=== PATIENT | female | born 1975 ===

== ENCOUNTER 2022-10-28 18:09 | Emergency (ER) | payer OTHER, MEDICAID, SELFPAY ==
[2022-10-28] VITALS (9 sets, daily range): BP systolic 112–169; BP diastolic 65–91; PULSE 84–94; RESP 16–18; TEMP 36.6; O2SAT 97–100; BMI 51.5
--- NOTE | 2022-10-28 18:29 | ED.ABDPAIN ---
HPI - Abdominal Pain General Chief Complaint: Abdominal Pain Stated Complaint: abd pain t-7/cramping/ref by [facility] Time Seen by Provider: 10/28/22 18:20 Source: patient Mode of arrival: Wheelchair History of Present Illness HPI narrative: 47-year-old female smoker without chronic medical problems presents for evaluation of at least 7 days of right upper quadrant pain. She states that it has been coming on rather gradually in his persistent. It is made worse by motion and eating. She states that she has a poor appetite and last solid food was a few bites of applesauce last night. Her last oral intake was 1 or 2 hours ago. She denies any fever or chills. She is generally weak but denies fever and chills. She has poor appetite. She denies any runny nose, sore throat or cough. She has no chest pain or shortness of breath. She denies any prior surgeries. She states that she is scheduled to have surgery at [facility] in the next few days to remove a IUD that has been in place for greater than 20 years. She states that she has known for least the past 6 years that it has been broken and penetrating her uterine wall. She denies vaginal bleeding or discharge. She has no lower abdominal pain Related Data Previous Rx's Medication Instructions Recorded furosemide 20 mg tablet (Lasix) 20 mg PO QDAY #15 tabs 12/08/16 potassium chloride 20 mEq 20 meq PO QDAY #15 tabs 12/08/16 tablet,extended release (K-Tab) amoxicillin 875 mg-potassium 1 tab PO Q12H #20 tabs 10/28/22 clavulanate 125 mg tablet hydrocodone 5 mg-acetaminophen 325 1 tab PO Q4-6H PRN pain #10 tabs 10/28/22 mg tablet ondansetron 4 mg disintegrating 4 mg PO TID-QID PRN nausea and 10/28/22 tablet vomiting #10 tabs Allergies Allergy/AdvReac Type Severity Reaction Status Date / Time prednisone [PREDNISONE] AdvReac Unknown TO HIGH Verified 10/28/22 18:12 DOSES=ITCHING, MOOD SWINGS, SHAKING Review of Systems Review of Systems Narrative: GENERAL: See HPI HEENT: Denies sinus pain, ear pain, sore throat, difficulty swallowing, dizziness. RESPIRATORY: Denies dyspnea, cough, wheezing, hemoptysis, sputum. CARDIOVASCULAR: Denies chest pain, palpitations, orthopnea, edema, GASTROINTESTINAL: See HPI : Denies dysuria, frequency, incontinence, hematuria, urinary retention. MUSCULOSKELETAL: denies weakness, joint pain, or bony pain SKIN: Denies rash, skin lesions, or other NEUROLOGIC: Denies weakness, headache, numbness, change in speech, confusion, seizures, incoordination. PSYCHIATRIC: No concerning psychosocial issues. 12 point review of systems is negative except for those stated above Patient History Social History Smoking Status: Current every day smoker Smoking Status: Current every day smoker alcohol intake frequency: holidays/special occasions only Substance Use Type: does not use Exam Narrative Exam Narrative: GENERAL: [47] year old patient appears stated age. Well-developed patient, in mild distress. BMI 51.6 HEAD: Atraumatic. Normocephalic. EYES: Pupils equal round and reactive. Extraocular motions intact. No scleral icterus. No injection or drainage. ENT: Nose without bleeding, purulent drainage. Throat without erythema, tonsillar hypertrophy or exudate. Airway patent. NECK: Trachea midline. Non tender CARDIOVASCULAR: Regular rate and rhythm without murmurs, gallops, or rubs. RESPIRATORY: Clear to auscultation. Breath sounds equal bilaterally. No wheezes, rales, or rhonchi. GASTROINTESTINAL: Abdomen soft, tender in the right upper quadrant, positive Carlin's, nondistended. EXTREMITIES: No edema or joint tenderness. BACK: Nontender without deformity or crepitance. No flank tenderness. NEURO: AOx3. SKIN: No rash or erythema of visible areas Initial Vital Signs Initial Vital Signs: Vital Signs Temperature 97.8 F 10/28/22 18:12 Pulse Rate 94 H 10/28/22 18:12 Respiratory Rate 16 10/28/22 18:12 Blood Pressure 112/65 10/28/22 18:12 Pulse Oximetry 100 10/28/22 18:12 Oxygen Delivery Method Room Air 10/28/22 18:12 Course Orders Ordered: ED Orders 10/28/22 18:25 Urine Microscopic Stat 10/28/22 18:42 US abdomen limited Stat 10/28/22 19:05 Complete Blood Count AUTO DIFF Stat Comprehensive Metabolic Panel Stat Lipase Stat 10/28/22 19:58 CT abdomen pelvis w con Stat Ondansetron HCl (Ondansetron 4 Mg/2 Ml Inj) 4 mg IV NOW PRN PRN Reason: Nausea And Vomiting Last Admin: 10/28/22 19:12 Dose: 4 mg Documented By: SANJEEV Discontinued Medications Hydrocodone Bitart/Acetaminophen (Hydrocodone/Acet 5/325 Prepack) 1 bottle MISC SEEINSTR ONE Stop: 10/28/22 20:51 Hydromorphone HCl (Hydromorphone 0.5 Mg Inj) 0.5 mg IV NOW ONE Stop: 10/28/22 18:44 Last Admin: 10/28/22 19:12 Dose: 0.5 mg Documented By: SANJEEV Sodium Chloride (Normal Saline 0.9%) 1,000 mls @ 1,000 mls/hr IV BOLUS ONE Stop: 10/28/22 19:42 Last Infusion: 10/28/22 20:24 Dose: 0 mls/hr Documented By: Admin: 10/28/22 19:12 Dose: 1,000 mls/hr Documented By: SANJEEV Ondansetron HCl (Ondansetron 4 Mg Odt Prepack) 1 bottle MISC SEEINSTR ONE Stop: 10/28/22 20:51 Vital Signs Vital signs: Vital Signs - 8 hr 10/28/22 18:12 10/28/22 19:22 10/28/22 19:23 Temperature 97.8 F Pulse Rate 94 H 88 84 Respiratory Rate 16 Blood Pressure 112/65 Pulse Oximetry 100 97 97 Oxygen Delivery Method Room Air Room Air Room Air 10/28/22 19:23 10/28/22 19:30 10/28/22 19:30 Temperature Pulse Rate 85 Respiratory Rate Blood Pressure 136/85 169/91 H Pulse Oximetry 98 Oxygen Delivery Method Room Air 10/28/22 20:00 10/28/22 20:01 10/28/22 20:01 Temperature Pulse Rate 84 84 Respiratory Rate Blood Pressure 143/69 H Pulse Oximetry 97 97 Oxygen Delivery Method Room Air 10/28/22 20:30 10/28/22 20:30 10/28/22 20:53 Temperature Pulse Rate 85 Respiratory Rate 18 Blood Pressure 156/84 H Pulse Oximetry 98 Oxygen Delivery Method Room Air MDM - Abdominal Pain Lab Data 10/28/22 19:05 10/28/22 19:05 Labs: Lab Results 10/28/22 10/28/22 10/28/22 Range/Units 18:25 19:05 19:05 WBC 14.8 H (4.5-11.0) X10^3/uL RBC 5.16 (4.0-5.2) X10^6/uL Hgb 15.8 (12.0-16.0) g/dL Hct 46.5 H (36-46) % MCV 90.2 (80-100) fL MCH 30.6 (26-34) PG MCHC 34.0 (30-36) % RDW 13.4 (11.6-14.8) % Plt Count 240 (150-400) X10^3/uL Neut % (Auto) 82.3 H (50-75) % Lymph % (Auto) 8.8 L (25-40) % [place] % (Auto) 6.2 (3-14) % Eos % (Auto) 1.0 L (2-4) % Baso % (Auto) 1.7 (0-2) % Neut # (Auto) 58007 H (6063-5526) /uL Lymph # (Auto) 1300 (5181-8819) /uL [place] # (Auto) 900 (0-900) /uL Eos # (Auto) 200 (0-450) /uL Baso # (Auto) 200 H (0-100) /uL Sodium 133 L (137-145) mmol/L Potassium 3.7 (3.4-5.1) mmol/L Chloride 97 L (98-107) mmol/L Carbon Dioxide 27 (22-32) mmol/L BUN 7 (7-17) mg/dL Creatinine 0.60 (0.52-1.04) mg/dL Estimated GFR > 60 (>60) mL/min BUN/Creatinine Ratio 11.7 (6-22) Glucose 128 H (70-100) mg/dL Calcium 9.1 (8.4-10.2) mg/dL Total Bilirubin 0.7 (0.2-1.3) mg/dL AST 20 (14-36) IU/L ALT 33 (<35) IU/L Alkaline Phosphatase 82 (38-126) U/L Total Protein 7.9 (6.3-8.2) g/dL Albumin 4.2 (3.5-5.0) g/dL Globulin 3.7 (1.7-4.1) g/dL Albumin/Globulin Ratio 1.1 (1.0-2.8) Lipase 24 (23-300) U/L Urine RBC 10-30/hpf H (0-5/HPF) Urine WBC 1-5/hpf (0-5/HPF) Ur Squamous Epith Cells 1-5 /hpf (0-5/HPF) Urine Bacteria Occasional (0-1) (None) Ur Culture Indicated? Cult not indicated Point of care testing: Point of Care Testing Test Results Negative Urine Dip Bedside Urine Glucose Negative Bedside Urine Bilirubin - Negative Bedside Urine Ketone - Negative Urine Specific [place] 1.015 Bedside Urine Occult Blood + Bedside Urine pH 6.0 Bedside Urine Protein - Negative Bedside Urine Urobilinogen - Negative Bedside Urine Nitrite - Negative Bedside Urine Leukocytes - Negative Esterase MDM Narrative Medical decision making narrative: CC: 47-year-old female with right upper quadrant pain x7 days Complicating co-morbidities: BMI 51.6, smoker Data collected from: Patient Medical records reviewed: Prior notes reviewed in our EMR Differential considered, but not limited to: Gallbladder disease versus pancreatitis versus bowel obstruction versus other Exam documented above, pertinent findings include: Heart rate is regular lungs are clear, abdomen soft but tender in the right upper quadrant, no suprapubic or lower abdominal pain Lab Test results independently reviewed as above. Pertinent findings: Independently reviewed EKG as above Imaging studies independently reviewed: Right upper quadrant abdominal ultrasound without any significant findings. CT of abdomen and pelvis with IV contrast shows inflammation versus infectious process in the ileum without evidence of obstruction, abscess, perforation or other significant finding Treatments: Fluids, pain control Re-evaluations: Patient feeling significant improvement. Pains controlled, tolerating orals Discussion: Patient with right upper quadrant pain for 1 week, multiple diagnoses considered as noted above. Gallbladder and pancreatic involvement thought unlikely given lack of laboratory or imaging findings. No evidence of obstruction, perforation, abscess or surgical finding. Inflammation versus infection of ileum thought most likely source. Patient's pain is well controlled, she is tolerating orals, labs and imaging are reassuring, return precautions discussed which include worsening pain, vomiting, fever, shaking chills. Disposition: see below, along with detailed discharge instructions that have been reviewed with patient as well as indications for ED re-evaluation and additional outpatient follow up Discharge Plan Departure Patient Disposition: Home Clinical Impression: Abdominal pain Instructions: DI for Abdominal Pain-Adult Activity Restrictions/Additional Instructions: *You have been diagnosed with [abdominal pain] * As we discussed your history and physical exam as well as labs and imaging are very reassuring. The CT shows some inflammation of part of your small bowel called the ileum. This may be infection or inflammation, but given your elevated white blood cell count it is most appropriate to treat with antibiotics. *What to do: *Please continue to take your regular medications as directed. [x ] New medication prescriptions sent to your pharmacy: [ [facility]] *Please follow up with your primary care provider in 2-3 days, call for an appointment. Let them know you were seen in the Emergency Department and that we ask that you be seen in follow up. We will electronically transmit a record of today's note if your PCP is in our system *Please consider a clear liquid diet for the next 24-48 hours and then slowly advance to regular as tolerated. Also, try to avoid alcohol, nicotine, caffeine, spicy, acidic or fatty foods as this may worsen your symptoms *If you do not have a primary care provider please contact the [facility] Resource line at [phone]. They will ask some questions about your medical history and help get you set up with a doctor in the community. *Return to Emergency Department if you should have any new, worsening or concerning symptoms, such as [fever greater than 101 F, shaking chills, worsening pain, persistent vomiting or other bothersome symptoms] Prescriptions: New hydrocodone-acetaminophen 5-325 mg tablet 1 tab PO Q4-6H PRN (Reason: pain) Qty: 10 0RF ondansetron 4 mg tablet,disintegrating 4 mg PO TID-QID PRN (Reason: nausea and vomiting) Qty: 10 0RF amoxicillin-pot clavulanate 875-125 mg tablet 1 tab PO Q12H Qty: 20 0RF No Action furosemide [Lasix] 20 MG tablet 20 mg PO QDAY Qty: 15 0RF potassium chloride [K-Tab] 20 MEQ tablet extended release 20 meq PO QDAY Qty: 15 0RF Referrals: Benita Pacheco ARNP [Primary Care Provider] - Stand Alone Forms: Patient Portal/API
--- NOTE | 2022-10-28 18:42 | DI.US.S_ITS ---
PROCEDURE: US ABDOMEN LIMITED INDICATIONS: RUQ pain, radiation to the back TECHNIQUE: Real-time scanning was performed of the abdominal and retroperitoneal organs, with image documentation. COMPARISON: None. FINDINGS: Liver: The liver demonstrates diffusely increased echotexture without focal abnormalities consistent with chronic hepatocellular disease/hepatic steatosis. Gallbladder: Gallbladder is normal in sonographic appearance without gallstones, gallbladder wall thickening, pericholecystic fluid, or abnormal sonographic Carlin's. Biliary ducts: Intrahepatic bile ducts are non-dilated. Extrahepatic bile duct caliber measures 6 mm. Normal is 6-7 mm or less in diameter, or 10 mm or less post-cholecystectomy. Pancreas: Pancreas not well visualized secondary to overlying bowel gas. Miscellaneous: No free abdominal fluid. IMPRESSION: The liver demonstrates diffusely increased echotexture without focal abnormalities consistent with chronic hepatocellular disease/hepatic steatosis. Consider correlation with LFTs. No sonographic evidence for acute cholecystitis. Dictated by: Carl Vizcarra M.D. on 10/28/2022 at 20:31 Approved by: Carl Vizcarra M.D. on 10/28/2022 at 20:32
[2022-10-28 18:52] LABS: Bacteria Urine Occasional (0-1); Culture Indicated Urine Cult Not Indicated; RBC Urine 10-30/HPF (0-5/HPF); Squamous Epithelial Cell Urine 1-5 /HPF (0-5/HPF); WBC Urine 1-5/HPF (0-5/HPF)
[2022-10-28] MEDS: ONDANSETRON 4 MG/2 ML INJ IV (19:12)
[2022-10-28] MEDS: SODIUM CHLORIDE 0.9% 1,000 ML 1000 ML IV (19:12)
[2022-10-28] MEDS: HYDROMORPHONE 0.5 MG INJ IV (19:12)
[2022-10-28 19:14] LABS: Add Manual Diff / Slide Review NO; Basophils Absolute Auto 200 /uL (0-100); Basophils Percent Auto 1.7 % (0-2); Eosinophils Absolute Auto 200 /uL (0-450); Hematocrit 46.5 % (36-46); Hemoglobin 15.8 g/dL (12.0-16.0); Lymphocytes Absolute Auto 1300 /uL (1100-4500); Lymphocytes Percent Auto 8.8 % (25-40); Mean Corpuscular Hemoglobin 30.6 PG (26-34); Mean Corpuscular Volume 90.2 fL (80-100); Monocytes Absolute Auto 900 /uL (0-900); Monocytes Percent Auto 6.2 % (3-14); Neutrophils Absolute Auto 12200 /uL (1500-7000); Neutrophils Percent Auto 82.3 % (50-75); Platelet Count 240 X10^3/uL (150-400); Red Blood Cell Count 5.16 X10^6/uL (4.0-5.2); Red Cell Distribution Width 13.4 % (11.6-14.8); White Blood Cell Count 14.8 X10^3/uL (4.5-11.0)
[2022-10-28 19:32] LABS: Alanine Aminotransferase 33 IU/L (<35); Albumin 4.2 g/dL (3.5-5.0); Albumin Globulin Ratio 1.1 (1.0-2.8); Alkaline Phosphatase 82 U/L (38-126); Aspartate Aminotransferase 20 IU/L (14-36); BUN Creatinine Ratio 11.7 (6-22); Bilirubin Total 0.7 mg/dL (0.2-1.3); Blood Urea Nitrogen 7 mg/dL (7-17); Calcium 9.1 mg/dL (8.4-10.2); Carbon Dioxide 27 mmol/L (22-32); Chloride 97 mmol/L (98-107); Estimated Glomerular Filt Rate > 60 mL/min (>60); Globulin 3.7 g/dL (1.7-4.1); Glucose 128 mg/dL (70-100); HEMOLYSIS < 15 (0-50); Lipase 24 U/L (23-300); Potassium 3.7 mmol/L (3.4-5.1); Sodium 133 mmol/L (137-145); Total Protein 7.9 g/dL (6.3-8.2)
--- NOTE | 2022-10-28 19:58 | DI.CT.S_ITS ---
PROCEDURE: CT ABDOMEN PELVIS W CON INDICATIONS: abdominal pain TECHNIQUE: After the administration of IV contrast, axial sections were acquired from the lung bases to the pubic symphysis. Coronal and sagittal reformats were performed. For radiation dose reduction, the following was used: automated exposure control, adjustment of mA and/or kV according to patient size. COMPARISON: [facility], CT, ABDOMEN/PELVIS WITH CONTRAST, 12/20/2015, 17:31. [facility], CT, CT ABDOMEN PELVIS WITH CONTRAST, 02/09/2022, 19:38. FINDINGS: Image quality: Excellent. Lung bases: Unremarkable. Heart: No significant findings. ABDOMEN: Liver: Liver measures 23.1 cm with steatosis. Gallbladder: Unremarkable. Biliary ducts: Unremarkable. Pancreas: Unremarkable. Spleen: Unremarkable. Adrenal Glands: Unremarkable. Kidneys and Ureters: Unremarkable. Stomach and Bowel: There are several loops of small bowel within the pelvis demonstrating thickened wall with minimal to mild appearance adjacent fat stranding. The terminal ileum is markedly thickened. Mild dependent pelvic fluid is present. Peritoneum: No free air. Ventral Wall: No hernia. Abdominal Nodes: No retroperitoneal or mesenteric adenopathy by size criteria. Vessels: Aorta and inferior vena cava are normal in size. PELVIS: Pelvic Organs: IUD is present. Bladder: Unremarkable. Pelvic Nodes: No enlarged lymph nodes. Miscellaneous: No inguinal hernias are seen. Bones: Unremarkable. IMPRESSION: Mild appearance of small bowel wall thickening with inflammatory change including the terminal ileum within the pelvis. Overall appearance is suggestive of infection/inflammation. Given involvement of terminal ileum, inflammatory bowel disease should be considered. Hepatomegaly with steatosis. Dictated by: Magalys Rajput M.D. on 10/28/2022 at 20:33 Approved by: Magalys Rajput M.D. on 10/28/2022 at 20:36
--- NOTE | 2022-10-28 20:48 | PC.NURSE ---
Patient states it has been 20 years since I had a period. She is scheduled on the of this month for robotic surgical removal of IUD at [facility].
[2022-10-28] MEDS: ONDANSETRON 4 MG ODT PREPACK 1 BOTTLE MISC (21:08)
[2022-10-28] MEDS: HYDROCODONE/ACET 5/325 PREPACK 1 BOTTLE MISC (21:08)
== END 2022-10-28 21:20 | disposition home or self-care (01) ==
PROVIDERS: Emergency Provider Emergency Medicine; PCP Nurse Practitioner
DX: R10.11 Right upper quadrant pain (principal)
CPT/HCPCS: 36415; 74177; 76705; 80053; 81003; 81015; 81025; 83690; 85025; 96361; 96374; 96375; 99284; J1170; J2405; Q9967

== ENCOUNTER 2023-08-03 20:25 | Emergency (ER) | payer OTHER, MEDICAID, SELFPAY ==
[2023-08-03 20:27] VITALS: BP 162/84; PULSE 88; RESP 16; TEMP 36.6; O2SAT 99; BMI 51.5
--- NOTE | 2023-08-03 20:34 | ED.SKABFB ---
HPI - Skin/Abscess/Foreign Bdy General Chief complaint: Wound/Laceration Stated complaint: RT Leg Laceration Time Seen by Provider: 08/03/23 20:29 History of Present Illness HPI narrative: 48-year-old female presents for knee laceration that occurred just prior to arrival. Patient was working with a table saw and accidentally placed the saw against her knee. She states she was up-to-date on her tetanus shot. The paramedics were called to assess the wound. They gave her Tylenol and ibuprofen and wrapped the wound and a bandage. Patient then took the [place] to [place] to come to the ER for evaluation. Related Data Previous Rx's Medication Instructions Recorded furosemide 20 mg tablet (Lasix) 20 mg PO QDAY #15 tabs 12/08/16 potassium chloride 20 mEq 20 meq PO QDAY #15 tabs 12/08/16 tablet,extended release (K-Tab) amoxicillin 875 mg-potassium 1 tab PO Q12H #20 tabs 10/28/22 clavulanate 125 mg tablet hydrocodone 5 mg-acetaminophen 325 1 tab PO Q4-6H PRN pain #10 tabs 10/28/22 mg tablet ondansetron 4 mg disintegrating 4 mg PO TID-QID PRN nausea and 10/28/22 tablet vomiting #10 tabs Allergies Allergy/AdvReac Type Severity Reaction Status Date / Time prednisone [PREDNISONE] AdvReac Unknown TO HIGH Verified 08/03/23 20:38 DOSES=ITCHING, MOOD SWINGS, SHAKING Review of Systems Review of Systems Narrative: See HPI Patient History Social History Smoking Status: Current every day smoker Smoking Status: Current every day smoker alcohol intake frequency: holidays/special occasions only Substance Use Type: does not use Exam Initial Vital Signs Initial Vital Signs: Vital Signs Temperature 97.9 F 08/03/23 20:27 Pulse Rate 88 08/03/23 20:27 Respiratory Rate 16 08/03/23 20:27 Blood Pressure 162/84 H 08/03/23 20:27 Pulse Oximetry 99 08/03/23 20:27 Oxygen Delivery Method Room Air 08/03/23 20:27 Const: Awake, alert, no acute distress, nontoxic appearing MSK:full range of motion, pulses equal Skin: Warm, Dry, 4 cm oblique laceration over right knee Neuro: AO x3, CN II-XII grossly intact, moves all extremities Procedures Laceration Repair Laceration 1: Site: lower extremity Side (If applicable): right Size (cm): 4 Description: linear and clean Depth: simple, single layer Local Anesthetic: lidocaine 1% and with epi Amount of anesthesia used (mL): 8 Pre-repair: wound explored, irrigated extensively and deep structures intact Skin layer closed with: nylon Skin layer suture size: 3-0 Number of sutures: 7 Technique: simple, interrupted Course Orders Ordered: Discontinued Medications Bacitracin (Bacitracin Oint 0.9 Gm Pckt) 1 applic TOP NOW ONE Stop: 08/03/23 20:59 Last Admin: 08/03/23 21:02 Dose: 1 applic Documented By: MOLLY Vital Signs Vital signs: Vital Signs - 8 hr 08/03/23 20:27 Temperature 97.9 F Pulse Rate 88 Respiratory Rate 16 Blood Pressure 162/84 H Pulse Oximetry 99 Oxygen Delivery Method Room Air MDM - Skin/Abscess/Foreign Bdy Differential Diagnosis Differential diagnosis: Likely abscess of skin or subcutaneous tissue, viral exanthem and dermatophytosis MDM Narrative Medical decision making narrative: Accidental laceration to right knee. Patient neurovascularly intact, up-to-date on tetanus shot. Wound irrigated copiously, explored, there does not appear to be any joint involvement at this time. Wound was repaired per procedure note. Strict ED return precautions discussed at bedside. Discharge Plan Departure Patient Disposition: Home Clinical Impression: Laceration of leg Instructions: DI for Laceration Repair Activity Restrictions/Additional Instructions: Sutures will need to be removed in 7-10 days. Keep the wound clean and dry. If you notice redness, swelling, drainage please return immediately for evaluation. Prescriptions: No Action furosemide [Lasix] 20 MG tablet 20 mg PO QDAY Qty: 15 0RF potassium chloride [K-Tab] 20 MEQ tablet extended release 20 meq PO QDAY Qty: 15 0RF hydrocodone-acetaminophen 5-325 mg tablet 1 tab PO Q4-6H PRN (Reason: pain) Qty: 10 0RF ondansetron 4 mg tablet,disintegrating 4 mg PO TID-QID PRN (Reason: nausea and vomiting) Qty: 10 0RF amoxicillin-pot clavulanate 875-125 mg tablet 1 tab PO Q12H Qty: 20 0RF Referrals: Benita Pacheco ARNP [Primary Care Provider] - Stand Alone Forms: Patient Portal/API
[2023-08-03] MEDS: BACITRACIN OINT 0.9 GM PCKT 1 APPLIC TOP (21:02)
--- NOTE | 2023-08-03 21:07 | PC.NURSE ---
bacitracin applied with telfa pad and mira bandage
== END 2023-08-03 21:09 | disposition home or self-care (01) ==
PROVIDERS: Emergency Provider Emergency Medicine; PCP Nurse Practitioner
DX: S81.011A Laceration without foreign body, right knee, initial encounter (principal); W27.0XXA Contact with workbench tool, initial encounter
CPT/HCPCS: 12002; 99283